=== PATIENT | female | born 1950 | race Two or more races ===

== ENCOUNTER → 2018-09-21 | Outpatient (CLI) | payer OTHER, MEDICARE ==
[~2018-09-21] MED LIST: OMNIPAQUE 350 MG/ML, 100ML BOTTLE ONE
== END | disposition home or self-care (01) ==
LOC: CFH 14:54
PROVIDERS: ATTEND Nurse Practitioner Family
DX: M51.36 Other intervertebral disc degeneration, lumbar region (principal); M43.16 Spondylolisthesis, lumbar region; K76.89 Other specified diseases of liver; R19.7 Diarrhea, unspecified
CPT/HCPCS: 74177; 82565; Q9967

== ENCOUNTER → 2018-12-07 | Outpatient (CLI) | payer MEDICARE, OTHER | END | disposition home or self-care (01) | LOC: CFH 08:13 | PROVIDERS: ATTEND Nurse Practitioner Family | DX: R10.31 Right lower quadrant pain (principal) | CPT/HCPCS: 76705 ==

== ENCOUNTER 2019-01-06 11:24 | Emergency (ER) | payer OTHER, MEDICARE ==
[~2019-01-06] VITALS: Ht 147.3 cm; Wt 82.0 kg
[2019-01-06 11:44] VITALS: BP 122/74
[2019-01-06 12:23] LABS: BASOPHILS # (AUTO) 0.03 x10^3/uL (0-0.1); BASOPHILS % (AUTO) 1 % (0-1); EOSINOPHILS # (AUTO) 0.35 x10^3/uL (0-0.4); EOSINOPHILS % (AUTO) 7 % (1-7); LYMPHOCYTES # (AUTO) 1.93 x10^3/uL (1-3.4); LYMPHOCYTES % (AUTO) 37 % (22-44); MD NO; MEAN CORPUSCULAR HEMOGLOBIN 28.6 pg (27.0-34.8); MEAN CORPUSCULAR HGB CONC 33.1 g/dL (32.4-35.8); MEAN CORPUSCULAR VOLUME 86.4 fL (80-100); MEAN PLATELET VOLUME 8.5 fL (7.4-10.4); MONOCYTES # (AUTO) 0.31 x10^3/uL (0.2-0.8); MONOCYTES % (AUTO) 6 % (2-9); NEUTROPHILS # (AUTO) 2.61 x10^3/uL (1.8-6.8); NEUTROPHILS % (AUTO) 50 % (42-75); PLATELET COUNT 314 x10^3/uL (130-400); RED BLOOD COUNT 4.73 x10^6/uL (3.82-5.3); RED CELL DISTRIBUTION WIDTH 15.5 % (9.6-15.2)
[2019-01-06 12:38] LABS: ANION GAP 7 mmol/L (5-15); CALCIUM 8.6 mg/dL (8.5-10.1); CHLORIDE 114 mmol/L (98-107); CREATININE 0.73 mg/dL (0.55-1.02)
[2019-01-06 12:39] LABS: ALANINE AMINOTRANSFERASE 24 U/L (12-78); ALBUMIN 3.5 g/dL (3.4-5.0)
[2019-01-06 12:40] LABS: ALKALINE PHOSPHATASE 95 U/L (45-117); BILIRUBIN,TOTAL 0.3 mg/dL (0.2-1.0); TOTAL PROTEIN 6.8 g/dL (6.4-8.2)
--- NOTE | 2019-01-06 12:40 | NUR ---
PT WALKED BACK FROM LOBBY. STEADY UPON AMBULATION. ASSUMED CARE OF PT AT THIS TIME. AT BEDSIDE. PT AO X 4. SKIN WARM AND DRY. RESP EVEN AND UNLABORED. PT C/O "BUMP" "THAT MOVES" ON RLQ. PT REPORTS PAIN IS WORSE WHEN LIFTING. PT REPORTS PAIN IS 9/10 AT THIS TIME. PT REPORTS DIARRHEA X 3 MONTHS. PT HAS BEEN TO GI MD FOR THIS AND HAS HAD MRI, COLONOSCOPY AND ENDOSCOPY FOR THIS AND PER PT AND "THEY FOUND NOTHING". PT DENIES RECENT ANTIBIOTIC USE. PT ON CONT BP AND O2 MONITORS. AWAITING ER MD DING.
--- NOTE | 2019-01-06 12:51 | NUR ---
REX SALTER AT BEDSIDE FOR EVAL.
[2019-01-06] MEDS ORDERED: KETOROLAC 30 MG/1 ML ONE (12:54)
[2019-01-06] MEDS ORDERED: KETOROLAC 30 MG/1 ML IM ONE (13:00)
--- NOTE | 2019-01-06 13:00 | NUR ---
IM TORDAL SHOT GIVEN FOR PAIN. COVERED WITH A BANDAID. PT STATED SHE UNDERSTAND THAT SHE NEEDS TO BEEN SEEN BY A SURGEON FOR SURGERY. PT NOW DRESSED IN STREET CLOTHES.
== END 2019-01-06 13:22 | disposition home or self-care (01) ==
LOC: ED 13:10
DX: K40.90 Unilateral inguinal hernia, without obstruction or gangrene, not specified as recurrent (principal); R10.2 Pelvic and perineal pain
CPT/HCPCS: 36415; 80053; 85025; 96372; 99283; J1885